=== PATIENT | female | born 1945 | race American Indian/Alaskan Native ===

== ENCOUNTER 2017-12-17 13:52 | Emergency (ER) | payer MEDICARE ==
[2017-12-17 15:10] LABS: Hematocrit 43.1 % (30.3-42.9); Hemoglobin 13.8 gm/dl (10.1-14.3); Mean Corpuscular HGB Conc 32 % (30-34); Mean Corpuscular Hemoglobin 29 pg (28-32); Mean Corpuscular Volume 90 fl (79-97); Platelet Count 211 K/mm3 (140-440); Red Cell Distribution Width 16.8 % (13.2-15.2)
[2017-12-17 15:27] LABS: Calcium 8.8 mg/dL (8.4-10.2)
[2017-12-17 20:43] VITALS: BP 89/69
== END 2017-12-17 23:07 | disposition left against medical advice (07) ==
LOC: ED 13:52
DX: R10.9 Unspecified abdominal pain (principal); Z53.21 Procedure and treatment not carried out due to patient leaving prior to being seen by health care provider
CPT/HCPCS: 36415; 80048; 85027